=== PATIENT | male | born 1975 | race Caucasian/White ===

== ENCOUNTER 2019-03-15 19:01 | Emergency (ER) | payer OTHER ==
[~2019-03-15] VITALS: Ht 172.7 cm; Wt 72.6 kg
--- NOTE | 2019-03-15 19:08 | ED Head Injury ---
General Stated Complaint: HEAD INJ Source: patient, family, RN notes reviewed Exam Limitations: no limitations History of Present Illness Date Seen by Provider: Mar 15, 2019 Time Seen by Provider: 19:08 Initial Comments Patient brought to the ED by his family c/ c/o having [place] striking the back of his head and reportedly being knocked out for upwards of 45 seconds. Did sustain a laceration to the back of his head. Denies any other injuries. Does admit to drinking today. Family says he has been repeating his questions [employer]. Patient does admit to no recall of events res ulting in the fall and laceration. Occurred: this evening Severity: mild Location: occipital Method of Injury: direct blow (on concrete), fell Loss of Consciousness: brief (seconds) (45) Associated Systoms: Denies Symptoms Allergies and Home Medications Allergies Coded Allergies: Penicillins (Verified Allergy, Unknown, 03/15/19) Patient Home Medication List Home Medication List Reviewed: Yes Review of Systems Review of Systems Constitutional: see HPI Skin: see HPI, other (scalp laceration) All Other Systems Reviewed Negative Unless Noted: Yes (Negative excepted noted.) Physical Exam Vital Signs Vital Signs - First Documented 03/15/19 19:19 Temp 98.7 Pulse 112 Resp 18 B/P (MAP) 148/89 (108) Pulse Ox 95 O2 Delivery Room Air Capillary Refill : Height, Weight, BMI Height: '" Weight: lbs. oz. kg; BMI Method: General Appearance: WD/WN, no apparent distress HEENT: PERRL/EOMI, normal ENT inspection Neck: normal inspection Cardiovascular: regular rate, rhythm Respiratory: no respiratory distress Psychiatric: alert, oriented x 3 Crainal Nerves: normal hearing, normal speech, PERRL Skin: warm/dry, other (Approximately 5 cm stellate occiptial scalp laceration. Bleeding controlled. ) [place] Coma Score Best Eye Response: (4) Open Spontaneously Best Verbal Response: (5) Oriented Best Motor Response: (6) Obeys Commands Servando Total: 15 Procedures/Interventions Wound Location: Scalp Wound Length (cm): 5 Wound's Depth, Shape: irregular, stellate Wound Explored: no foreign body removed Other Closure Supply: Wound Adhesive Sterile Dressing Applied?: No Progress/Results/Core Measures Results/Orders My Orders Orders - SHANTELLE,AROLDO D DO Dipht,Pertuss(Acell),Tet Adult (Boostrix (03/15/19 19:30) Ct Head/Cervical Spine Wo (03/15/19 19:41) Medications Given in ED Vital Signs/I&O Diagnostic Imaging Diagonstic Imaging: CT Plain Films/CT/US/NM/MRI: c-spine (negative), head (negative) Departure Impression Primary Impression: Head injury with reported (+) LOC Additional Impression: Occipital scalp laceration Disposition: 01 HOME, SELF-CARE Condition: Stable Departure-Patient Inst. Decision time for Depature: 20:41 Patient Instructions: Closed Head Injury (DC), Laceration Repair With Glue (DC) Add. Discharge Instructions: RECOMMEND 400 mg OF IBUPROFEN EVERY 6 HOURS NEEDED FOR PAIN. AROLDO PEPPER DO Mar 15, 2019 19:08
--- NOTE | 2019-03-15 19:23 | NUR ---
Patient refused CT at this time.
[2019-03-15] MEDS ORDERED: TETANUS,DIPTH,PERTUSS P/F (BOOSTRIX) 0.5 ML VIAL IM ONE (19:30)
--- NOTE | 2019-03-15 20:36 | Diagnostic Imaging Report ---
PROCEDURE: CT head and CT cervical spine without contrast. TECHNIQUE: Multiple contiguous axial images were obtained through the brain and cervical spine without the use of intravenous contrast. Sagittal and coronal reformations through the cervical spine were then performed. Auto Exposure Controls were utilized during the CT exam to meet ALARA standards for radiation dose reduction. INDICATION: Traumatic head/neck injury with loss of consciousness. COMPARISON: None. FINDINGS - CT BRAIN: BRAIN: No parenchymal hemorrhage, midline shift or mass effect. Ribeiro-white matter differentiation is intact. No acute infarct. No white matter lesions. Ventricles, sulci and basilar cisterns are normal. EXTRA-AXIAL SPACES: No subdural or epidural collections. ORBITS AND PARANASAL SINUSES: Visualized orbits and globes are intact. Visualized paranasal sinuses and mastoid air cells are clear. CALVARIUM AND SOFT TISSUES: The calvarium is intact. No fractures or suspicious bony lesions. The extracranial soft tissues are unremarkable. FINDINGS - CT CERVICAL SPINE: SPINE: No fracture. No acute osseous abnormalities. There is straightening of cervical lordosis. No subluxation. There is mild multilevel degenerative loss of disc height with endplate osteophytes. No locked or perched facet. SOFT TISSUES AND LUNG APICES: Soft tissues unremarkable. Clear lung apices. IMPRESSION: - CT BRAIN: No acute intracranial pathology. IMPRESSION: - CT CERVICAL SPINE: Mild degenerative changes of the cervical spine, without evidence of acute fracture or subluxation. Dictated by: Dictated on workstation # [id number]
[2019-03-15 20:40] VITALS: BP 136/82
== END 2019-03-15 20:40 | disposition home or self-care (01) ==
LOC: ER FS 19:03
DX: S06.9X9A Unspecified intracranial injury with loss of consciousness of unspecified duration, initial encounter (principal); S01.01XA Laceration without foreign body of scalp, initial encounter; R40.2142 Coma scale, eyes open, spontaneous, at arrival to emergency department; R40.2252 Coma scale, best verbal response, oriented, at arrival to emergency department; R40.2362 Coma scale, best motor response, obeys commands, at arrival to emergency department; Z88.0 Allergy status to penicillin; W01.118A Fall on same level from slipping, tripping and stumbling with subsequent striking against other sharp object, initial encounter
CPT/HCPCS: 70450; 72125; 90471; 90715